=== PATIENT | female | born 1965 | race Caucasian/White ===

== ENCOUNTER 2016-09-24 08:58 | Emergency (ER) | payer OTHER ==
[2016-09-24] MEDS ORDERED: CITALOPRAM HBR20 M1 PO (09:36)
== END 2016-09-24 11:25 ==
LOC: EDMED 08:58
DX: S29.011A Strain of muscle and tendon of front wall of thorax, initial encounter (principal); S46.911A Strain of unspecified muscle, fascia and tendon at shoulder and upper arm level, right arm, initial encounter; R91.1 Solitary pulmonary nodule; V49.40XA Driver injured in collision with unspecified motor vehicles in traffic accident, initial encounter; Y92.410 Unspecified street and highway as the place of occurrence of the external cause